=== PATIENT | female | born 1980 | race Caucasian/White ===

== ENCOUNTER 2024-11-24 19:32 | Emergency (ER) | payer OTHER, SELFPAY ==
--- NOTE | 2024-11-24 19:38 | ED.LOWEXIN ---
HPI - Extremity Injury (Lower) General Chief Complaint: Extremity Problem,Nontraumatic Stated Complaint: toe pain Time Seen by Provider: 11/24/24 19:41 Source: patient, RN notes reviewed and old records reviewed Mode of arrival: ambulatory Limitations: no limitations History of Present Illness HPI Narrative: 44-year-old female presents to the [facility] with bilateral great toe skin pain. No joint pain. No erythema. No swelling. Patient reports on Saturday both her great toe started hurting. Today starting with multiple toes, dorsal aspect, skin only around the nail reports tenderness if anything touches it. Related Data Home Medications ?Medication ?Instructions ?Recorded ?Confirmed ?Last Taken ?Type Opdualag 11/24/24 Unknown History levothyroxine 125 mcg tablet mcg 11/24/24 Unknown History (Synthroid) montelukast 10 mg tablet mg 11/24/24 Unknown History pantoprazole 20 mg tablet,delayed mg PO 11/24/24 Unknown History release tirzepatide (weight loss) 12.5 mg subcut 11/24/24 Unknown History mg/0.5 mL subcutaneous pen injector (Zepbound) topiramate 25 mg sprinkle capsule mg PO 11/24/24 Unknown History ubrogepant 100 mg tablet (Ubrelvy) mg 11/24/24 Unknown History Allergies Allergy/AdvReac Type Severity Reaction Status Date / Time Penicillins Allergy Intermediate rash Verified 11/24/24 19:34 Sulfa (Sulfonamide Allergy Intermediate Rash Verified 11/24/24 19:34 Antibiotics) Review of Systems Review of Systems: All systems reviewed & are unremarkable except as noted in HPI and below Constitutional: Constitutional: Reports no additional constitutional complaints Musculoskeletal: Musculoskeletal: Reports no additional musculoskeletal complaints Integumentary/Breasts: Skin/Breast: Reports as per HPI and Reports skin pain PMFSH Comments At the time of my signature, I reviewed and agree with the nursing past medical, surgical, social, and family history. There is no relevant family history pertinent to the patient complaint. Exam Const: General: cooperative, healthy appearing, comfortable, no acute distress, well developed, alert and well nourished Nutritional Appearance: well nourished and obese Orientation/consciousness: patient oriented x3 Limitations: no limitations HENMT: Head: normal to inspection Eyes: General: appearance normal, both eyes and all related structures Alignment and Position: alignment normal Neck: Neck: normal visual inspection, full ROM, no lymphadenopathy and no meningeal signs Chest: Chest palpation & inspection: normal inspection of the chest Resp: Effort & Inspection: normal respiratory effort and able to speak in complete sentences Cardio: Rate: regular rate Skin: General skin exam: normal color and no rashes or lesions noted Other: Reports skin pain without erythema, ecchymosis. Mostly around the toenail of great toes, 5th toes. No joint tenderness. No pain to the plantar aspect. Neuro: General: patient oriented x3, gait normal, moves all extremities and no meningeal signs Cognition (Neuro): normal cognition Speech: normal speech Gait exam (Neuro): Normal gait present Extrem: General: normal to inspection, full ROM, capillary refill normal and normal gait Psych: Appearance: grossly normal and well kempt Mental Status: mental status grossly normal Speech and movement: Normal speech and movement present and Clear speech present Affect: normal affect Attitude: cooperative Course Course Level of Care: Express Care Visit Vital Signs Vital signs: Vital Signs Temperature 97.6 F 11/24/24 19:42 Pulse Rate 91 11/24/24 19:42 Respiratory Rate 18 11/24/24 19:42 Blood Pressure 121/82 11/24/24 19:42 Pulse Oximetry 100 11/24/24 19:42 Oxygen Delivery Room Air 11/24/24 19:42 Temperature 97.6 F 11/24/24 19:42 Pulse Rate 91 11/24/24 19:42 Respiratory Rate 18 11/24/24 19:42 Blood Pressure 121/82 11/24/24 19:42 Pulse Oximetry 100 11/24/24 19:42 Oxygen Delivery Room Air 11/24/24 19:42 Reviewed MDM - Extremity Injury (Lower) MDM Narrative Medical decision making narrative: Patient sitting in exam room. Patient is nontoxic, vitals are stable. Patient presents with skin pain to bilateral great toes. No pain to the joints. No redness. No swelling. Patient is appropriate for outpatient treatment with close follow-up Discharge instructions reviewed with patient, as well as provided in writing per nursing staff. The instructions also include specific and strict return/GO TO THE ER as well as f/u information. All questions have been answered, and the patient deny any further questions with discharge and discharge plan. Some parts of this dictation were generated by voice recognition software and may contain typographical and/or grammatical inaccuracies. Differential Diagnosis Differential diagnosis: Likely other (Neuropathy, paronychia, medication reaction) Critical Care Time Critical Care Time Critical Care Time: No Discharge Plan Discharge Clinical Impression: Pain of skin Patient Disposition: Home Condition: Stable Instructions: Antibiotic Form, Paresthesia (ED) Additional Instructions: Follow-up with primary care provider Follow-up with oncology Patient Language: Citizen Of [place] Prescriptions: No Action pantoprazole 20 mg tablet,delayed release (DR/EC) PO topiramate 25 mg capsule, sprinkle PO levothyroxine [Synthroid] 125 mcg tablet montelukast 10 mg tablet Ubrelvy 100 mg tablet Zepbound 12.5 mg/0.5 mL pen injector SUBCUT Opdualag Rx Instructions: Immune therapy given on 28 day cycle for Melanoma treatment Follow-up/Referrals: Theodore,Hill Reid MD [Primary Care Provider, Unknown] - 3 Days Time of Disposition: 20:00
[2024-11-24 19:42] VITALS: BP 121/82; PULSE 91; RESP 18; TEMP 36.4; O2SAT 100
== END 2024-11-24 20:01 | disposition home or self-care (01) ==
PROVIDERS: Emergency Provider Nurse Practitioner; PCP Internal Medicine Endocrinology, Diabetes & Metabolism
DX: M79.675 Pain in left toe(s) (principal); M79.674 Pain in right toe(s); K21.9 Gastro-esophageal reflux disease without esophagitis; E03.9 Hypothyroidism, unspecified; Z85.820 Personal history of malignant melanoma of skin
CPT/HCPCS: 99202; G0463